=== PATIENT | female | born 1985 | race Caucasian/White ===

== ENCOUNTER 2020-07-08 04:29 | Emergency (ER) | payer MEDICARE, OTHER ==
[~2020-07-08] VITALS: Ht 160 cm; Wt 62.0 kg
[~2020-07-08 04:29] MED LIST: BIOTIN1 M1 PO; FOLIC ACID1 MG PO; LATUDA40 MG PO; ORTHO-CYCLEN1 EACH PO; TRAZODONE HCL50 MG PO
--- OUTSIDE RECORDS SUMMARY | 2020-07-08 04:32 | XMS ---
PreManage Notification: MARTHA LO [employer] Events No recent Security Events currently on file CRITERIA MET - [facility] - Has Care Guidelines CARE PROVIDERS There are no care providers on record at this time. Guidelines Source: [facility] [place] Guidelines Date: 07/29/2019 Care Coordination: Currently seeking mental health services through [facility]. Please contact [facility] for any mental health concerns.\T\nbsp; Ran [phone] [place] [phone] Crisis Line [phone] E.D. VISIT COUNT (12 MO.) 1 [facility] TOTAL 1 NOTE: Visits indicate total known visits. ED/UCC VISIT TRACKING (12 MO.) 07/08/2020 04:29 [facility] [place] TYPE: Emergency COMPLAINT: - MEDICAL CLEARANCE INPATIENT VISIT TRACKING (12 MO.) No inpatient visits to display in this time frame [email or web address]
[2020-07-08] MEDS ORDERED: DULOXETINE HCL60 MG PO (04:54)
[2020-07-08] MEDS ORDERED: LAMOTRIGINE100 MG PO (04:54)
[2020-07-08] MEDS ORDERED: [UNRECOGNIZED DRUG - OTHER] PO (04:55)
[2020-07-08] MEDS ORDERED: PRAZOSIN HCL5 MG PO (04:55)
[2020-07-08] MEDS ORDERED: AMITRIPTYLINE H25 MG PO (04:55)
== END 2020-07-09 15:14 ==
LOC: ED 04:29
DX: R45.851 Suicidal ideations (principal); Z20.822 Contact with and (suspected) exposure to COVID-19; Z88.7 Allergy status to serum and vaccine; Z79.899 Other long term (current) drug therapy
CPT/HCPCS: 80053; 80176; 81001; 84443; 84703; 85025; 99285; A9270; C9803; U0003